=== PATIENT | male | born 1970 | race Caucasian/White ===

== ENCOUNTER → 2020-10-12 | Outpatient (CLI) | payer BC, OTHER ==
[~2020-10-12] MED LIST: ASPIRIN EC325 MG PO; DAILY FIBER PO; METFORMIN HCL500 MG PO; ONE-A-DAY ESSE1 EACH PO; OXYCODON-ACETA1 EAC1 PO; TYLENOL EXTRA500 MG PO; VITAMIN B-125000 MC1 PO; VITAMIN D3 PO
== END ==
LOC: KOH-I 10-06 11:00
DX: M16.11 Unilateral primary osteoarthritis, right hip (principal)
CPT/HCPCS: 72192

== ENCOUNTER → 2020-11-10 | Outpatient (CLI) | payer BC, OTHER ==
[2020-11-10 13:32] LABS: HEMOGLOBIN 15.9 gm/dl (14.0-17.5); RED BLOOD COUNT 5.22 M/UL (4.20-5.50); WHITE BLOOD COUNT 6.8 K/UL (4.5-11.0)
[2020-11-10 14:05] LABS: BUN/CREATININE RATIO 23 (0-10)
== END ==
LOC: EDSTATUS 12:00 → OPSV2 12:00
PROVIDERS: Orthopaedic Surgery
DX: Z01.818 Encounter for other preprocedural examination (principal)
CPT/HCPCS: 80048; 83036; 85027; 87081; 93005

== ENCOUNTER → 2020-11-18 | Outpatient (CLI) | payer BC, OTHER ==
[2020-11-18 15:26] LABS: BUN/CREATININE RATIO 18 (0-10)
== END ==
LOC: LAB 12:45
PROVIDERS: Orthopaedic Surgery
DX: Z01.818 Encounter for other preprocedural examination (principal); M16.11 Unilateral primary osteoarthritis, right hip; E11.9 Type 2 diabetes mellitus without complications
CPT/HCPCS: 36415; 80048; 86850; 86900; 86901

== ENCOUNTER 2020-11-19 07:36 | Day surgery (SDC) | payer BC, OTHER ==
[~2020-11-19] VITALS: Ht 177.8 cm; Wt 98.4 kg
[~2020-11-19 07:36] MED LIST changes: -ASPIRIN EC325 MG PO; -METFORMIN HCL500 MG PO; -OXYCODON-ACETA1 EAC1 PO
[2020-11-19] MEDS ORDERED: METFORMIN HCL500 MG PO (08:23)
[2020-11-19] MEDS ORDERED: OXYCODON-ACETA1 EAC1 PO (12:39)
[2020-11-19] MEDS ORDERED: ASPIRIN EC325 MG PO (12:39)
[2020-11-20 04:54] LABS: HEMOGLOBIN 12.6 gm/dl (14.0-17.5); RED BLOOD COUNT 4.21 M/UL (4.20-5.50); WHITE BLOOD COUNT 13.3 K/UL (4.5-11.0)
[2020-11-20 07:03] LABS: BUN/CREATININE RATIO 25 (0-10)
[2020-11-21 06:32] LABS: HEMOGLOBIN 11.2 gm/dl (14.0-17.5)
[2020-11-21 06:33] LABS: RED BLOOD COUNT 3.73 M/UL (4.20-5.50); WHITE BLOOD COUNT 9.8 K/UL (4.5-11.0)
[2020-11-21 07:05] LABS: BUN/CREATININE RATIO 24 (0-10)
== END 2020-11-21 16:27 | disposition home or self-care (01) ==
LOC: M/S 07:36 → OR 07:36 → M/S 17:00 → OR 11-21 16:27
PROVIDERS: Orthopaedic Surgery
DX: M16.11 Unilateral primary osteoarthritis, right hip (principal); K29.70 Gastritis, unspecified, without bleeding; R55 Syncope and collapse; E11.9 Type 2 diabetes mellitus without complications; E86.1 Hypovolemia; N40.0 Benign prostatic hyperplasia without lower urinary tract symptoms; Z79.84 Long term (current) use of oral hypoglycemic drugs; Z79.899 Other long term (current) drug therapy
CPT/HCPCS: 36415; 72170; 73502; 76000; 80048; 82962; 85027; 97110-GP-CQ; 97116-GP-CQ; 97163; 97165; 97530; 97535; C1713; C1776; J0171; J0690; J1100; J1885; J2250; J2370; J2405; J2795; J3010; J3370; J7050; J7120

== ENCOUNTER 2021-02-18 09:55 | Inpatient (IN) | payer BC ==
[~2021-02-18] VITALS: Ht 177.8 cm; Wt 97.1 kg
[~2021-02-18 09:55] MED LIST changes: +ASPIRIN EC325 MG PO; +METFORMIN HCL500 MG PO; +MUCINEX600 MG PO; +OXYCODON-ACETA1 EAC1 PO; -VITAMIN D3 PO
[2021-02-18 10:33] LABS: HEMOGLOBIN 15.7 gm/dl (14.0-17.5); RED BLOOD COUNT 5.42 M/UL (4.20-5.50); WHITE BLOOD COUNT 8.3 K/UL (4.5-11.0)
[2021-02-18 10:56] LABS: BUN/CREATININE RATIO 12 (0-10)
[2021-02-18] MEDS ORDERED: VITAMIN D3125 MCG PO (13:45)
[2021-02-18] MEDS ORDERED: FIBER TABS625 MG PO (16:35)
[2021-02-19 05:33] LABS: HEMOGLOBIN 15.1 gm/dl (14.0-17.5); RED BLOOD COUNT 5.34 M/UL (4.20-5.50)
[2021-02-19 05:43] LABS: WHITE BLOOD COUNT 5.4 K/UL (4.5-11.0)
[2021-02-19 06:04] LABS: BUN/CREATININE RATIO 26 (0-10)
[2021-02-20 03:03] LABS: HEMOGLOBIN 15.1 gm/dl (14.0-17.5); RED BLOOD COUNT 5.33 M/UL (4.20-5.50)
[2021-02-20 03:17] LABS: WHITE BLOOD COUNT 8.6 K/UL (4.5-11.0)
[2021-02-20 03:35] LABS: BUN/CREATININE RATIO 30 (0-10)
[2021-02-21 03:45] LABS: HEMOGLOBIN 14.3 gm/dl (14.0-17.5); RED BLOOD COUNT 5.01 M/UL (4.20-5.50)
[2021-02-21 03:47] LABS: WHITE BLOOD COUNT 11.7 K/UL (4.5-11.0)
[2021-02-21 04:07] LABS: BUN/CREATININE RATIO 40 (0-10)
--- NOTE | 2021-02-21 14:41 | NUR ---
PT MOVED TO ICU PER . PT 89% on 100% bi pap. report called to angel in icu. pt transported by rn,tech and respiratory. Chart taken down with pt. pt stable at this time.
--- NOTE | 2021-02-21 15:29 | NUR ---
PATIENT BROUGHT TO ICU BY EVELYN WALTERS AND GEOVANNI, LEIGHA.
[2021-02-22 04:49] LABS: HEMOGLOBIN 13.8 gm/dl (14.0-17.5); RED BLOOD COUNT 4.83 M/UL (4.20-5.50)
[2021-02-22 04:50] LABS: WHITE BLOOD COUNT 16.7 K/UL (4.5-11.0)
[2021-02-23 06:03] LABS: HEMOGLOBIN 11.5 gm/dl (14.0-17.5); RED BLOOD COUNT 4.09 M/UL (4.20-5.50); WHITE BLOOD COUNT 9.3 K/UL (4.5-11.0)
[2021-02-23 06:19] LABS: BUN/CREATININE RATIO 35 (0-10)
[2021-02-24 05:45] LABS: HEMOGLOBIN 11.6 gm/dl (14.0-17.5); RED BLOOD COUNT 4.16 M/UL (4.20-5.50); WHITE BLOOD COUNT 9.6 K/UL (4.5-11.0)
[2021-02-24 06:12] LABS: BUN/CREATININE RATIO 48 (0-10)
[2021-02-25 05:25] LABS: HEMOGLOBIN 11.6 gm/dl (14.0-17.5); RED BLOOD COUNT 4.18 M/UL (4.20-5.50); WHITE BLOOD COUNT 8.5 K/UL (4.5-11.0)
[2021-02-25 05:37] LABS: BUN/CREATININE RATIO 55 (0-10)
[2021-02-26 03:47] LABS: HEMOGLOBIN 12.7 gm/dl (14.0-17.5); RED BLOOD COUNT 4.49 M/UL (4.20-5.50); WHITE BLOOD COUNT 13.7 K/UL (4.5-11.0)
[2021-02-26 04:15] LABS: BUN/CREATININE RATIO 52 (0-10)
[2021-02-27 07:09] LABS: HEMOGLOBIN 12.6 gm/dl (14.0-17.5); RED BLOOD COUNT 4.4 M/UL (4.20-5.50); WHITE BLOOD COUNT 11.7 K/UL (4.5-11.0)
[2021-02-27 07:45] LABS: BUN/CREATININE RATIO 44 (0-10)
[2021-02-28 04:35] LABS: HEMOGLOBIN 12.8 gm/dl (14.0-17.5); RED BLOOD COUNT 4.51 M/UL (4.20-5.50)
[2021-02-28 04:52] LABS: BUN/CREATININE RATIO 47 (0-10)
[2021-03-01 05:03] LABS: HEMOGLOBIN 13.2 gm/dl (14.0-17.5); RED BLOOD COUNT 4.71 M/UL (4.20-5.50); WHITE BLOOD COUNT 11.7 K/UL (4.5-11.0)
[2021-03-01 05:27] LABS: BUN/CREATININE RATIO 50 (0-10)
[2021-03-02 05:08] LABS: HEMOGLOBIN 14.6 gm/dl (14.0-17.5); RED BLOOD COUNT 5.18 M/UL (4.20-5.50); WHITE BLOOD COUNT 14.2 K/UL (4.5-11.0)
[2021-03-02 05:27] LABS: BUN/CREATININE RATIO 53 (0-10)
[2021-03-03 03:47] LABS: HEMOGLOBIN 15.1 gm/dl (14.0-17.5); RED BLOOD COUNT 5.31 M/UL (4.20-5.50); WHITE BLOOD COUNT 13.8 K/UL (4.5-11.0)
[2021-03-03 04:06] LABS: BUN/CREATININE RATIO 62 (0-10)
[2021-03-04 09:19] LABS: HEMOGLOBIN 15.1 gm/dl (14.0-17.5); RED BLOOD COUNT 5.33 M/UL (4.20-5.50); WHITE BLOOD COUNT 13.5 K/UL (4.5-11.0)
[2021-03-04 09:46] LABS: BUN/CREATININE RATIO 43 (0-10)
[2021-03-07 07:29] LABS: RED BLOOD COUNT 5.34 M/UL (4.20-5.50); WHITE BLOOD COUNT 13.4 K/UL (4.5-11.0)
[2021-03-07 07:57] LABS: BUN/CREATININE RATIO 22 (0-10)
--- NOTE | 2021-03-08 16:31 | NUR ---
CALLED PROVIDER PATIENT PATIENT HAS WHITE AREAS IN MOUTH SIMILAR TO JOAQUIM, LEFT MESSAGE WITH PROVIDER REQUESTING SWISH AND SWALLOW. DID NOT REACH PROVIDER. CANTACT INFOR LEFT IN MESSAGE. WILL CONTINUE TO MONITOR.
[2021-03-09 08:02] LABS: HEMOGLOBIN 13.9 gm/dl (14.0-17.5); RED BLOOD COUNT 5.16 M/UL (4.20-5.50); WHITE BLOOD COUNT 13.8 K/UL (4.5-11.0)
[2021-03-09 09:00] LABS: BUN/CREATININE RATIO 23 (0-10)
[2021-03-10 04:47] LABS: HEMOGLOBIN 12.4 gm/dl (14.0-17.5); RED BLOOD COUNT 4.66 M/UL (4.20-5.50)
[2021-03-10 04:48] LABS: WHITE BLOOD COUNT 9.5 K/UL (4.5-11.0)
[2021-03-10 05:21] LABS: BUN/CREATININE RATIO 16 (0-10)
[2021-03-11 07:59] LABS: HEMOGLOBIN 12.4 gm/dl (14.0-17.5); RED BLOOD COUNT 4.66 M/UL (4.20-5.50); WHITE BLOOD COUNT 8.7 K/UL (4.5-11.0)
[2021-03-11 08:56] LABS: BUN/CREATININE RATIO 14 (0-10)
[2021-03-11] MEDS ORDERED: DIFLUCAN 100 M100 MG PO (15:34)
[2021-03-11] MEDS ORDERED: ATORVASTATIN CA20 MG PO (15:34)
[2021-03-11] MEDS ORDERED: ASPIRIN EC81 MG PO (15:34)
[2021-03-11] MEDS ORDERED: ELIQUIS 5 MG TAB5 MG PO (15:34)
[2021-03-11] MEDS ORDERED: CARVEDILOL12.5 MG NG (15:34)
== END 2021-03-11 18:42 | disposition home or self-care (01) | DRG 870 ==
LOC: ER1 09:55 → CDU 11:51 → CCU 11:51 → MED SURG 4 11:51 → PROG CARE 17:22 → CCU 02-21 14:44 → PROG CARE 03-02 11:12 → MED SURG 4 03-05 14:39
PROVIDERS: Emergency Medicine; Internal Medicine; Internal Medicine Infectious Disease; Internal Medicine Pulmonary Disease; Physician Assistant Medical; ADMIT Internal Medicine
PROC: 3E0333Z Introduction of Anti-inflammatory into Peripheral Vein, Percutaneous Approach (ICD-10-PCS; principal; 2021-02-18)
PROC: XW033E5 Introduction of Remdesivir Anti-infective into Peripheral Vein, Percutaneous Approach, New Technology Group 5 (ICD-10-PCS; principal; 2021-02-18)
PROC: 8E0ZXY6 Isolation (ICD-10-PCS; 2021-02-18)
PROC: 5A1955Z Respiratory Ventilation, Greater than 96 Consecutive Hours (ICD-10-PCS; 2021-02-22)
PROC: 0BH17EZ Insertion of Endotracheal Airway into Trachea, Via Natural or Artificial Opening (ICD-10-PCS; 2021-02-22)
PROC: B24BZZ4 Ultrasonography of Heart with Aorta, Transesophageal (ICD-10-PCS; 2021-03-01)
DX: A41.89 Other specified sepsis (principal); G93.41 Metabolic encephalopathy; I63.40 Cerebral infarction due to embolism of unspecified cerebral artery; U07.1 COVID-19; J12.82 Pneumonia due to coronavirus disease 2019; J80 Acute respiratory distress syndrome; R57.8 Other shock; G81.94 Hemiplegia, unspecified affecting left nondominant side; E87.1 Hypo-osmolality and hyponatremia; E87.2 Acidosis; M62.82 Rhabdomyolysis; N17.9 Acute kidney failure, unspecified; I16.0 Hypertensive urgency; E66.9 Obesity, unspecified; E11.65 Type 2 diabetes mellitus with hyperglycemia; E86.0 Dehydration; T38.0X5A Adverse effect of glucocorticoids and synthetic analogues, initial encounter; Z96.641 Presence of right artificial hip joint; E88.09 Other disorders of plasma-protein metabolism, not elsewhere classified; Z79.4 Long term (current) use of insulin; Z79.82 Long term (current) use of aspirin; Z74.01 Bed confinement status; Z83.6 Family history of other diseases of the respiratory system; Z68.30 Body mass index [BMI] 30.0-30.9, adult
CPT/HCPCS: ECHO; 36415; 36600; 70551; 71045; 74018; 76705; 80048; 80053; 80061; 82550; 82553; 82728; 82803; 82962; 83036; 83605; 83615; 83735; 83874; 83880; 84100; 84484; 85025; 85027; 85379; 85610; 86140; 87040; 87070; 87081; 87086; 87205; 87880; 92526; 93005; 93306; 93880; 93970; 94002; 94003; 94640; 94660; 94664; 94760; 96374; 96375; 97110; 97110-GP-CQ; 97112; 97116-GP-CQ; 97163; 97167; 97530; 97530-GP-CQ; 97535; 99285; A6212; C9113; J0360; J0456; J0696; J1100; J1200; J1205; J1650; J1940; J2060; J2185; J2250; J2310; J2405; J2543; J2704; J3010; J7030; J7040; J7050; J7070; U0002

== ENCOUNTER → 2021-04-01 | Outpatient (CLI) | payer BC, OTHER ==
[~2021-04-01] MED LIST changes: +ASPIRIN EC81 MG PO; +ATORVASTATIN CA20 MG PO; +CARVEDILOL12.5 MG NG; +DIFLUCAN 100 M100 MG PO; +ELIQUIS 5 MG TAB5 MG PO; +FIBER TABS625 MG PO; +VITAMIN D3125 MCG PO
== END | disposition home or self-care (01) ==
LOC: WCC 13:30
PROC: 0JB70ZZ Excision of Back Subcutaneous Tissue and Fascia, Open Approach (ICD-10-PCS; principal; 2021-04-01)
DX: L89.153 Pressure ulcer of sacral region, stage 3 (principal); E11.622 Type 2 diabetes mellitus with other skin ulcer; M19.90 Unspecified osteoarthritis, unspecified site; E11.40 Type 2 diabetes mellitus with diabetic neuropathy, unspecified; I10 Essential (primary) hypertension; Z79.84 Long term (current) use of oral hypoglycemic drugs; Z79.01 Long term (current) use of anticoagulants; Z79.82 Long term (current) use of aspirin; Z79.2 Long term (current) use of antibiotics; Z79.899 Other long term (current) drug therapy

== ENCOUNTER → 2021-04-08 | Outpatient (CLI) | payer BC, OTHER | LOC: WCC 13:41 | DX: L89.153 Pressure ulcer of sacral region, stage 3 (principal); E11.9 Type 2 diabetes mellitus without complications; Z86.16 Personal history of COVID-19; Z79.84 Long term (current) use of oral hypoglycemic drugs; Z79.01 Long term (current) use of anticoagulants; Z79.82 Long term (current) use of aspirin; I10 Essential (primary) hypertension ==

== ENCOUNTER → 2021-04-22 | Outpatient (CLI) | payer BC, OTHER | LOC: WCC 14:36 | DX: L89.153 Pressure ulcer of sacral region, stage 3 (principal); E11.622 Type 2 diabetes mellitus with other skin ulcer; E11.40 Type 2 diabetes mellitus with diabetic neuropathy, unspecified; I10 Essential (primary) hypertension; M19.90 Unspecified osteoarthritis, unspecified site; Z79.899 Other long term (current) drug therapy; Z79.01 Long term (current) use of anticoagulants; Z79.84 Long term (current) use of oral hypoglycemic drugs; Z79.82 Long term (current) use of aspirin; Z86.16 Personal history of COVID-19 ==

== ENCOUNTER → 2021-05-06 | Outpatient (CLI) | payer BC, OTHER | LOC: WCC 13:28 | DX: L89.153 Pressure ulcer of sacral region, stage 3 (principal); E11.622 Type 2 diabetes mellitus with other skin ulcer; Z86.16 Personal history of COVID-19; Z79.84 Long term (current) use of oral hypoglycemic drugs; Z79.01 Long term (current) use of anticoagulants; Z79.82 Long term (current) use of aspirin; I10 Essential (primary) hypertension ==